=== PATIENT | male | born 1955 | race Two or more races ===

== ENCOUNTER 2024-06-24 10:20 | Emergency (ER) | payer BC, MEDICAID ==
[~2024-06-24] VITALS: Ht 172.7 cm; Wt 102.1 kg
[2024-06-24 11:10] VITALS: BP 129/69; TEMP 98
[2024-06-24 12:25] VITALS: O2SAT 98
== END 2024-06-24 12:26 | disposition home or self-care (01) ==
LOC: ER 10:20
DX: M96.831 Postprocedural hemorrhage of a musculoskeletal structure following other procedure (principal); I10 Essential (primary) hypertension
CPT/HCPCS: 99282; A6403